=== PATIENT | female | born 2000 | race Hispanic/Latino ===

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

== ENCOUNTER 2024-10-01 14:29 | Emergency (ER) | payer OTHER, MEDICAID ==
[~2024-10-01] VITALS: Ht 160 cm; Wt 68.0 kg
[2024-10-01 15:06] LABS: BASOPHILS # (AUTO) 0.07 K/uL (0.00-0.20); BASOPHILS % (AUTO) 0.9 % (0.0-5.0); EOSINOPHILS % (AUTO) 1.3 % (0.0-8.0); HEMATOCRIT 44.7 % (36-48); IMMATURE GRANULOCYTE ABSOLUTE 0.02 K/uL (0-1); LYMPHOCYTES # (AUTO) 1.9 K/uL (1.0-4.8); LYMPHOCYTES % (AUTO) 24.3 % (21.0-51.0); MEAN CORPUSCULAR HGB CONC 32.7 g/dL (32.0-36.0); MEAN CORPUSCULAR VOLUME 85.8 fL (79-99); MONOCYTES # (AUTO) 0.4 K/uL (0.1-1.0); MONOCYTES % (AUTO) 5.2 % (3.0-13.0); NEUTROPHILS # (AUTO) 5.2 K/uL (1.8-7.7); PLATELET COUNT (AUTO) 353 K/uL (130-400); RED BLOOD CELL COUNT(AUTO) 5.21 MIL/uL (4.00-5.50); RED CELL DISTRIBUTION WIDTH 12.2 % (11.0-15.5); WHITE BLOOD COUNT (AUTO) 7.7 K/uL (4.8-10.8)
[2024-10-01 15:15] LABS: CREATININE 0.8 mg/dL (0.5-1.0); POTASSIUM 3.9 mmol/L (3.5-5.1)
--- NOTE | 2024-10-01 16:11 | HMCIMG ---
Exam Type: CT ABDOMEN/PELVIS W/O CONTRAST Clinical Information: left flank pain Comparison: None CT Dose Index (CTDI): 10.20 mGy Dose Length Product (DLP): 530.00 total mGy-cm PROTOCOL: Routine noncontrast helical scanning of the abdomen and pelvis was performed at 5mm collimation. Findings: Bilateral tiny, 1 to 2 mm renal calculi are seen. There is no hydronephrosis. No worrisome renal masses are seen. The lung bases are clear. The stomach is unremarkable. It shows no wall thickening. No gross ulceration is seen. It is not overly distended. There are no surrounding inflammatory changes. No wall lesions are identified to suggest cancer. The spleen is unremarkable. It is not enlarged. The pancreas shows normal anatomy. It is not fatty replaced. It shows no lesions. The pancreatic duct is not dilated. The gallbladder is unremarkable. It shows no cholelithiasis. The gallbladder wall is normal in thickness. There is no pericholecystic fluid. The is no acute or chronic inflammation noted. The adrenal glands are unremarkable. There is no enlargement. No lesions are noted. The liver is unremarkable. It shows no focal masses. The appendix is unremarkable. It shows no evidence of inflammation. No appendicolith is seen. The small bowel is unremarkable. There is no evidence of dilatation to suggest obstruction. No evidence of adynamic ileus is seen. There is no small bowel wall thickening to suggest enteritis. The colon is unremarkable. The urinary bladder is unremarkable. There is no wall thickening to suggest tumor or inflammation. There are no intraluminal calculi. There are no diverticula. There is no evidence of chronic bladder outlet obstruction. There is no evidence of urinary bladder distention to suggest urinary retention. The other pelvic structures are unremarkable. The bony and vascular structures are unremarkable for the patient's age. IMPRESSION: Bilateral nonobstructing nephrolithiasis. This study was performed using dose reduction techniques to include automated exposure control and/or adjustment of the mA and/or kV according to patient size.
[2024-10-01 16:48] LABS: APPEARANCE,URINE CLEAR (CLEAR); BILIRUBIN,URINE NEGATIVE (NEGATIVE); COLOR,URINE LIGHT-YELLOW (YELLOW); GLUCOSE, URINE (UA) NEGATIVE (NEGATIVE); KETONES,URINE 5 mg/dL (NEGATIVE); LEUKOCYTE ESTERASE ,URINE NEGATIVE Leu/uL (NEGATIVE); NITRATE,URINE NEGATIVE (NEGATIVE); PROTEIN,URINE NEGATIVE (NEGATIVE); UROBILINOGEN,URINE 0.2 mg/dL (0.2-1.0)
[2024-10-01 16:51] LABS: BACTERIA,URINE RARE /HPF (None Seen); MUCUS,URINE FEW LPF (None Seen); SQUAMOUS EPITHELIAL CELL,UR RARE /HPF (0-2)
[2024-10-01] MEDS: ketOROlac 15MG/ML VIAL (15MG/ML) IM ONE (17:07)
--- NOTE | 2024-10-01 18:04 | HMCIMG ---
Exam Type: US PELVIC NON-OB COMP Clinical Information: Left pelvic pain Comparison: None Last menstrual period: Findings: The uterus is normal in size and echogenicity. The endometrial lining is normal in thickness. No intrauterine or ectopic seen. The ovaries are normal in size and echogenicity. Vascular Doppler flow exam and spectral analysis of waveforms analysis is unremarkable bilaterally. There is preserved vascularity to both ovaries on Doppler evaluation. Specifically, there is no evidence of ovarian torsion. No free fluid is noted throughout the cul-de-sac. There are no adnexal abnormalities. No other significant abnormalities are seen. No fluid collections or masses or free fluid are identified in the pelvis. Impression: NORMAL EXAM. No evidence of uterine pathology. No evidence of adnexal abnormalities or ovarian torsion. No intrauterine or ectopic seen.
[2024-10-01] MEDS ORDERED: IBUP-2070 PO (18:09)
--- NOTE | 2024-10-01 18:09 | ERN ---
General Chief Complaint: Pelvic Pain Stated Complaint: PELVIC/BACK PAIN Time Seen by MD: 14:31 Source: patient History of Present Illness Allergies: Coded Allergies: No Known Allergies (Unverified Allergy, Unknown, 10/01/24) Past Medical History Past Medical History: No Pertinent History Past Surgical History: Appendectomy Female( History) LMP: Sep 28, 2024 Results Laboratory and Microbiology Lab and Micro Result Laboratory Tests Test 10/01/24 14:56 10/01/24 16:15 White Blood Count 7.7 K/uL (4.8-10.8) Red Blood Count 5.21 MIL/uL (4.00-5.50) Hemoglobin 14.6 g/dL (12.0-16.0) Hematocrit 44.7 % (36-48) Mean Corpuscular Volume 85.8 fL (79-99) Mean Corpuscular Hemoglobin 28.0 pg (27.0-33.0) Mean Corpuscular Hemoglobin Concent 32.7 g/dL (32.0-36.0) Red Cell Distribution Width 12.2 % (11.0-15.5) Platelet Count 353 K/uL (130-400) Mean Platelet Volume 9.7 fL (7.5-10.5) Immature Granulocyte % (Auto) 0.3 % (0-1) Neutrophils (%) (Auto) 68.0 % (40.0-77.0) Lymphocytes (%) (Auto) 24.3 % (21.0-51.0) Monocytes (%) (Auto) 5.2 % (3.0-13.0) Eosinophils (%) (Auto) 1.3 % (0.0-8.0) Basophils (%) (Auto) 0.9 % (0.0-5.0) Neutrophils # (Auto) 5.2 K/uL (1.8-7.7) Lymphocytes # (Auto) 1.9 K/uL (1.0-4.8) Monocytes # (Auto) 0.4 K/uL (0.1-1.0) Eosinophils # (Auto) 0.10 K/uL (0.00-0.70) Basophils # (Auto) 0.07 K/uL (0.00-0.20) Absolute Immature Granulocyte (auto 0.02 K/uL (0-1) Nucleated Red Blood Cells 0.0 % (0.0-0.19) Sodium Level 138 mmol/L (136-145) Potassium Level 3.9 mmol/L (3.5-5.1) Chloride Level 103 mmol/L (101-111) Carbon Dioxide Level 29 mmol/L (21-32) Blood Urea Nitrogen 12 mg/dL (7-18) Creatinine 0.8 mg/dL (0.5-1.0) Glomerular Filtration Rate Calc 105 mL/min (>90) Random Glucose 86 mg/dL (70-105) Total Calcium 8.8 mg/dL (8.5-10.1) Serum Test, Qualitative NEGATIVE (NEGATIVE) Urine Color LIGHT-YELLOW (YELLOW) Urine Appearance CLEAR (CLEAR) Urine pH 6.0 (5.0-8.0) Urine Specific [place] 1.024 (1.001-1.031) Urine Protein NEGATIVE mg/dL (NEGATIVE) Urine Glucose (UA) NEGATIVE mg/dL (NEGATIVE) Urine Ketones 5 mg/dL (NEGATIVE) H Urine Occult Blood +- (TRACE) (NEGATIVE) H Urine Nitrate NEGATIVE (NEGATIVE) Urine Bilirubin NEGATIVE mg/dL (NEGATIVE) Urine Urobilinogen 0.2 mg/dL (0.2-1.0) Urine Leukocyte Esterase NEGATIVE Lexie/uL Urine RBC 2-5 /HPF (0-1) H Urine WBC 2-5 /HPF (0-1) H Urine Squamous Epithelial Cells RARE /HPF (0-2) Urine Bacteria RARE /HPF (None Seen) ED Course Orders Procedure Category Date Status Time Cbc With Differential LAB 10/01/24 Complete 14:31 Basic Metabolic Panel LAB 10/01/24 Complete 14:31 Urinalysis LAB 10/01/24 Complete W/Microscopic 14:31 Testing, LAB 10/01/24 Complete Serum Hcg 14:35 Ct Abdomen/Pelvis W/O CT 10/01/24 Resulted Contrast 14:35 Ketorolac PHA 10/01/24 Complete Tromethamine 15mg/Ml 17:00 Us Pelvic Non-Ob Comp US 10/01/24 Resulted 17:01 Current Medications Medications (Trade) Dose Ordered Sig/Dora Route PRN Reason Start Time Stop Time Status Last Admin Dose Admin Ketorolac Tromethamine (toRADol) 15 mg ONCE ONCE IM 10/01/24 17:00 10/01/24 17:01 DC 10/01/24 17:07 Vital Signs Date Time Temp Pulse Resp B/P (MAP) Pulse Ox O2 Delivery O2 Flow Rate FiO2 10/01/24 14:31 97.9 78 16 160/113 99 Room Air DX & DISP Disposition: Discharge Departure Impression: Primary Impression: Bilateral nephrolithiasis Condition: Stable Scripts Ibuprofen (Ibuprofen) 600 Mg Tablet 1 TAB PO TID for pain for 7 Days, #21 TAB 0 Refills with food Prov: ELSIE IGNACIO 10/01/24 Additional Instructions: Discharge home. Rest. Follow up with primary care DrMilla in 24 hours. Return to the ER for any acute changes or worsening symptoms. If any medications were prescribed take as directed. Okay to continue home medications unless otherwise discussed during your visit in the emergency room today. Patient was also advised to follow-up with primary care physician in 1 to 2 days for continued monitoring. Referrals: SELF,REFERRAL (PCP) I performed the substantive portion of the visit. I have reviewed and personally made and approve the management plan that is documented in the notes by myself or the KORY. I acknowledge full responsibility for the patient's management plan. ELSIE IGNACIO Oct 01, 2024 18:09
[2024-10-01 18:34] VITALS: BP 144/88; PULSE 60; RESP 16; TEMP 98.1; O2SAT 100
== END 2024-10-01 18:46 | disposition home or self-care (01) ==
LOC: EDH 14:29
DX: N20.0 Calculus of kidney (principal); Z90.49 Acquired absence of other specified parts of digestive tract
CPT/HCPCS: 99285; 74176; 76856; 80048; 84703; 85025; 81001; 36415; 96372; J1885

== ENCOUNTER 2025-01-08 11:44 | Emergency (ER) | payer OTHER, MEDICAID ==
[~2025-01-08] VITALS: Ht 160 cm; Wt 77.1 kg
[~2025-01-08 11:44] MED LIST: IBUP-2070 PO
[2025-01-08 12:06] VITALS: PULSE 77; RESP 18
[2025-01-08] MEDS: 0.9%NACL 1000ML 1,000 ML IV ONE (12:07)
[2025-01-08 12:09] LABS: IMMATURE GRANULOCYTE ABSOLUTE 0.02 K/uL (0-1); NUCLEATED RED BLOOD CELLS 0.0 % (0.0-0.19); PLATELET COUNT (AUTO) 339 K/uL (130-400); RED BLOOD CELL COUNT(AUTO) 4.95 MIL/uL (4.00-5.50); RED CELL DISTRIBUTION WIDTH 13.2 % (11.0-15.5); WHITE BLOOD COUNT (AUTO) 7.5 K/uL (4.8-10.8)
[2025-01-08 12:15] LABS: CREATININE 0.7 mg/dL (0.5-1.0); GLOMERULAR FILTR. RATE CALC 123.0 mL/min (>90); GLUCOSE,RANDOM 91.0 mg/dL (70-105); SODIUM SERUM 140.0 mmol/L (136-145); UREA NITROGEN, BLOOD 7.0 mg/dL (7-18)
[2025-01-08 12:16] LABS: SARS-CoV-2, RNA, NAAT NEGATIVE SARS CoV-2 (NEGATIVE)
[2025-01-08 12:21] LABS: INFLUENZA TYPE A Negative For Type A (NEGATIVE); INFLUENZA TYPE B Negative For Type B (NEGATIVE)
--- NOTE | 2025-01-08 13:39 | EKG ---
[facility] Test Date: 2025-01-08 Test Time: 13:35:48 Pat Name: VIVIANA BEY Department: ED Room: Gender: F Gis Coordinator: [id number] : 2000 Requested By: DEXTER HENLEY Order Number: [id number] Reading MD: Lowell Sol Measurements Intervals [place] Rate: 69 P: 39 AR: 173 QRS: 65 QRSD: 109 T: 42 QT: 386 QTc: 414 Interpretive Statements Sinus rhythm No previous ECG available for comparison Electronically Signed On 01-11-2025 10:43:50 CDT by Lowell Sol Please click the below link to view image of tracing.
--- NOTE | 2025-01-08 13:56 | HMCIMG ---
EXAM: CR Chest, 1 View. CLINICAL HISTORY: cough/fever x1 week COMPARISON: None provided. FINDINGS: LUNGS: The lungs show no infiltrate or other acute finding. PLEURAL SPACES: No pleural effusion or pneumothorax. MEDIASTINUM: Cardiac size and mediastinal contours within normal limits. BONES: No acute osseous abnormality. IMPRESSION: No acute cardiopulmonary pathology is evident. /Pratts
--- NOTE | 2025-01-08 14:21 | ERN ---
General Chief Complaint: Cough Stated Complaint: COUGH, FEVER X1 WEEK Time Seen by MD: 11:45 Time Seen by Midlevel: 11:45 Source: patient History of Present Illness Initial Comments Patient is a 24-year-old female with no significant past medical history presenting to the emergency department for evaluation of cough and intermittent fevers that has been ongoing for one week. 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 Denies any other symptoms at this time Allergies: Coded Allergies: No Known Allergies (Unverified Allergy, Unknown, 10/01/24) Home Meds Active Scripts Methylprednisolone (Medrol) 4 Mg Tab.ds.pk, 1 TAB PO AD for 6 Days, #21 TAB 0 Refills 6 on day 1 then reduce by one tablet daily until gone Prov:DEXTER HENLEY 01/08/25 Azithromycin (Azithromycin) 250 Mg Tablet, 1 TAB PO AD for 5 Days, #6 TAB 0 Refills 2 the first day followed by 1 for days 2-5 Prov:DEXTER HENLEY 01/08/25 Ibuprofen (Ibuprofen) 600 Mg Tablet, 1 TAB PO TID for pain for 7 Days, #21 TAB 0 Refills with food Prov:ELSIE IGNACIO 10/01/24 Past Medical History Past Medical History: No Pertinent History Past Surgical History: Appendectomy ROS Dictation CONSTITUTIONAL: Negative except for HPI HEAD/FACE: Negative except for HPI EENT: Negative except for HPI RESPIRATORY: Negative except for HPI GASTROINTESTINAL/ABDOMINAL: Negative except for HPI GENITOURINARY: Negative except for HPI MUSCULOSKELETAL: Negative except for HPI INTEGUMENTARY: Negative except for HPI NEUROLOGICAL/PSYCH: Negative except for HPI HEMATOLOGIC/LYMPHATIC: Negative except for HPI All Systems Negative, Except as noted above. 13 point review of systems assessed and all negative except for above. Physical Exam Physical Exam Dictation Vital Signs reviewed General Appearance: Alert, oriented x 3, no acute distress, well developed, nourished. Head and Face: non-traumatic. Eyes: PERRL, pink conjunctivas, eyelid no trauma, anterior chamber with arcus senilis. Ears: Pinnas intact and no signs of trauma or erythema ear canals clear and no discharge TM no erythema Nose: No discharge, no bleeding. Oropharynx: Mouth normal, tongue pink, pharynx clear,no erythema, tonsils no exudates, no abscesses noted, mucous membrane moist Neck: Supple, non-tender, no thyromegaly, no masses, no JVD, no bruits Breast:Deferred Chest:No tenderness, no crepitus, no paradoxical movement, no retractions Lungs:Clear, well-ventilated, symmetric, no rales, no wheezing, no rhonchi, no stridor, good breath sounds bilaterally Heart: Regular rate, regular rhythm, no murmur, no gallops Vascular: no peripheral edema, Abdomen: Soft, positive bowel sounds, nondistended, no guarding, nontender, no rebound, no masses no hepatomegaly, no splenomegaly, no Sanchez's sign, no hernias. Rectal: Deferred Genital: Deferred Neurological: Normal speech, motor function intact, sensory function intact Musculoskeletal: Neck nontender, full range of motion, back nontender, full range of motion, Extremities: nontender, full range of motion Skin: Color pink, dry, no turgor, no rash, no lacerations, no abrasions, no contusions. Lymphatic: Deferred Results Laboratory and Microbiology Lab and Micro Result Laboratory Tests Test 01/08/25 11:51 01/08/25 11:59 Influenza Type A Antigen Negative For Type A Influenza Type B Antigen Negative For Type B SARS-CoV-2, RNA, NAAT NEGATIVE SARS CoV-2 White Blood Count 7.5 K/uL (4.8-10.8) Red Blood Count 4.95 MIL/uL (4.00-5.50) Hemoglobin 13.8 g/dL (12.0-16.0) Hematocrit 42.6 % (36-48) Mean Corpuscular Volume 86.1 fL (79-99) Mean Corpuscular Hemoglobin 27.9 pg (27.0-33.0) Mean Corpuscular Hemoglobin Concent 32.4 g/dL (32.0-36.0) Red Cell Distribution Width 13.2 % (11.0-15.5) Platelet Count 339 K/uL (130-400) Mean Platelet Volume 9.9 fL (7.5-10.5) Immature Granulocyte % (Auto) 0.3 % (0-1) Neutrophils (%) (Auto) 65.9 % (40.0-77.0) Lymphocytes (%) (Auto) 26.2 % (21.0-51.0) Monocytes (%) (Auto) 5.9 % (3.0-13.0) Eosinophils (%) (Auto) 0.8 % (0.0-8.0) Basophils (%) (Auto) 0.9 % (0.0-5.0) Neutrophils # (Auto) 4.9 K/uL (1.8-7.7) Lymphocytes # (Auto) 2.0 K/uL (1.0-4.8) Monocytes # (Auto) 0.4 K/uL (0.1-1.0) Eosinophils # (Auto) 0.06 K/uL (0.00-0.70) Basophils # (Auto) 0.07 K/uL (0.00-0.20) Absolute Immature Granulocyte (auto 0.02 K/uL (0-1) Nucleated Red Blood Cells 0.0 % (0.0-0.19) Sodium Level 140 mmol/L (136-145) Potassium Level 3.7 mmol/L (3.5-5.1) Chloride Level 105 mmol/L (101-111) Carbon Dioxide Level 30 mmol/L (21-32) Blood Urea Nitrogen 7 mg/dL (7-18) Creatinine 0.7 mg/dL (0.5-1.0) Glomerular Filtration Rate Calc 123 mL/min (>90) Random Glucose 91 mg/dL (70-105) Total Calcium 8.4 mg/dL (8.5-10.1) L Serum Test, Qualitative NEGATIVE (NEGATIVE) Labs Reviewed?: Yes MDM MDM: 24-year-old female with no significant past medical history presenting to the emergency department with flu-like symptoms ongoing for one week. Symptoms consistent with fever and a cough. Differential diagnosis: Acute bronchitis, pneumonia, viral illness There are no social concerns with this patient. Prescription drug management Prescriptions will include: Azithromycin, Medrol pack Medical management and examination interpretation discussions were had by me with other qualified healthcare professionals as indicated for the patient's care. ED Course Orders Procedure Category Date Status Time Cbc With Differential LAB 01/08/25 Complete 11:49 Basic Metabolic Panel LAB 01/08/25 Complete 11:49 Testing, LAB 01/08/25 Complete Serum Hcg 11:49 Covid Rna Naat LAB 01/08/25 Complete 11:49 Influenza Type A & B, LAB 01/08/25 Complete Rapid 11:49 Chest 1vw RAD 01/08/25 Resulted 11:49 Ipratropium/Albuterol PHA 01/08/25 Complete Neb (Duoneb) 12:00 0.9%Nacl 1000ml (Ns PHA 01/08/25 Complete 1000ml) 12:00 Dexamethasone 10mg/Ml PHA 01/08/25 Complete 1ml Vial (Dexameth 12:00 12 Lead Ekg Tracing- EKG 01/08/25 Complete Technical 13:27 Current Medications Medications (Trade) Dose Ordered Sig/Dora Route PRN Reason Start Time Stop Time Status Last Admin Dose Admin Albuterol (DUOneb) 1 UDVIAL ONCE ONCE IH 01/08/25 12:00 01/08/25 12:01 DC 01/08/25 12:06 Dexamethasone Sodium Phosphate (dexaMETHasone 10MG/ML 1ML VIAL) 10 mg ONCE ONCE IV 01/08/25 12:00 01/08/25 12:01 DC 01/08/25 12:07 Sodium Chloride 1,000 ml @ 0 mls/hr ONCE ONCE IV 01/08/25 12:00 01/08/25 12:01 DC 01/08/25 12:07 Vital Signs Date Time Temp Pulse Resp B/P (MAP) Pulse Ox O2 Delivery O2 Flow Rate FiO2 01/08/25 14:37 97.9 72 18 134/87 99 Room Air* 0 01/08/25 12:06 77 18 01/08/25 11:54 97.9 75 16 148/95 99 Room Air* 0 01/08/25 11:45 97.9 75 16 148/95 99 0 DX & DISP Disposition: Discharge Departure Impression: Primary Impression: Acute bronchitis Condition: Stable Scripts Methylprednisolone (Medrol) 4 Mg Tab.ds.pk 1 TAB PO AD for 6 Days, #21 TAB 0 Refills 6 on day 1 then reduce by one tablet daily until gone Prov: DEXTER HENLEY 01/08/25 Azithromycin (Azithromycin) 250 Mg Tablet 1 TAB PO AD for 5 Days, #6 TAB 0 Refills 2 the first day followed by 1 for days 2-5 Prov: DEXTER HENLEY 01/08/25 Additional Instructions: Your blood work today is unremarkable. Your CBC shows no signs of infection. White blood cell count is normal. You are not anemic. Your electrolytes are normal. Your kidney function is normal. Your chest x-ray shows some mild congestion so I have given you a prescription for azithromycin and steroids. Your EKG is normal. Please follow up with your primary care doctor in 2-3 days for repeat evaluation. Referrals: SELF,REFERRAL (PCP) Time of Disposition: 14:13 I have reviewed the case, and I agree with, Diagnosis and Plan I performed the substantive portion of the visit. I have reviewed and person ally made and approve the management plan that is documented in the note by myself or the KORY. I acknowledge for responsibility for the patient's management plan. DEXTER HENLEY Jan 08, 2025 14:21
[2025-01-08 14:37] VITALS: BP 134/87; PULSE 72; RESP 18; TEMP 97.9; O2SAT 99
[2025-01-08] MEDS ORDERED: AZIT250T9 PO (14:52)
[2025-01-08] MEDS ORDERED: METH4TAB3 PO (14:52)
== END 2025-01-08 14:57 | disposition home or self-care (01) ==
LOC: EDH 11:44
DX: J20.9 Acute bronchitis, unspecified (principal); Z20.822 Contact with and (suspected) exposure to COVID-19; Z79.1 Long term (current) use of non-steroidal anti-inflammatories (NSAID); Z90.49 Acquired absence of other specified parts of digestive tract
CPT/HCPCS: 99285; 96374; 71045; 87635; 80048; 84703; 85025; 87804 ×2; 36415; 93005; 94640; J1100; J7030